=== PATIENT | female | born 1950 | race Caucasian/White ===

== ENCOUNTER 2016-10-29 12:55 | Inpatient (IN) | payer BC, OTHER ==
[~2016-10-29] VITALS: Ht 167.6 cm; Wt 74.0 kg
[2016-10-29] MEDS ORDERED: LIDOCAINE/EPINEPHRINE 1% 20 ML VIAL INFIL ONE (13:45)
[2016-10-29] MEDS ORDERED: VENL75CA PO (13:58)
[2016-10-29] MEDS ORDERED: CHOL2000 PO (13:58)
[2016-10-29] MEDS ORDERED: LEVO75TA PO (13:58)
[2016-10-29] MEDS ORDERED: OXCA300T PO ×2 (13:58)
[2016-10-29] MEDS ORDERED: ATOR-22 PO (13:58)
[2016-10-29] MEDS ORDERED: DIVA125T PO (13:58)
[2016-10-29] MEDS ORDERED: ASCO10003 PO (13:58)
[2016-10-29] MEDS ORDERED: CALC500C70 PO (13:58)
--- NOTE | 2016-10-29 14:44 | DIAGNOSTIC IMAGING REPORT ---
LEFT TIBIA/FIBULA 2 VIEWS ROUTINE CLINICAL HISTORY: trauma, hematoma of de la cruz, laceration of de la cruz trauma COMPARISON: None. DISCUSSION: Nondisplaced oblique fracture midshaft tibia. Bony alignment and apposition are unremarkable. Fibula is unremarkable. There is no evidence for soft tissue swelling. IMPRESSION: Nondisplaced fracture midshaft tibia. The above report was generated using voice recognition software. It may contain grammatical, syntax or spelling errors. Electronically signed by: Pablo Funk M.D. 10/29/2016 2:43 PM Dictated Date/Time: 10/29/2016 2:41 PM
--- NOTE | 2016-10-29 14:44 | DIAGNOSTIC IMAGING REPORT ---
RIGHT TIBIA/FIBULA 2 VIEWS ROUTINE CLINICAL HISTORY: trauma, hematoma of de la cruz Right COMPARISON STUDY: None. FINDINGS: No fracture or dislocation within the right tibia or fibula. No radiopaque foreign bodies. Mild pretibial soft tissue swelling. IMPRESSION: No fractures within the right lower leg. Electronically signed by: Kahlil Stevens M.D. 10/29/2016 2:43 PM Dictated Date/Time: 10/29/2016 2:42 PM
[2016-10-29] MEDS ORDERED: FENTANYL CITRATE INJ 50 MCG/1 ML 2 ML VIAL IV STA ×2 (14:47→16:15)
--- NOTE | 2016-10-29 15:12 | EMERGENCY ROOM VISIT NOTE ---
ED Visit Note First contact with patient: 13:56 I have seen and examined this patient with Vanesa Nance and generally agree with the treatment plan as discussed. Current/Historical Medications Scheduled Ascorbic Acid (Vitamin C), 1,000 MG PO UD Atorvastatin (Lipitor), 20 MG PO QPM Calcium/Vitamin D (Os-Rebel 500 Plus D), 1 TAB PO DAILY Cholecalciferol (Vitamin D3), 2,000 UNITS PO DAILY Divalproex Sodium (Divalproex Sodium Dr), 125 MG PO QPM Levothyroxine Sodium (Synthroid), 75 MCG PO QAM Oxcarbazepine (Trileptal), 300 MG PO QAM Oxcarbazepine (Trileptal), 450 MG PO QPM Venlafaxine Hcl (Effexor Xr), 75 MG PO QAM Allergies Coded Allergies: No Known Allergies (Unverified , 10/29/16) Vital Signs Date Time Temp Pulse Resp B/P (MAP) Pulse Ox O2 Delivery O2 Flow Rate FiO2 10/29/16 13:05 36.7 63 18 157/96 98 Room Air Laboratory Results Test 10/29/16 14:47 Departure Information Referrals No Doctor, Assigned (PCP) Patient Instructions My [facility]
[2016-10-29 15:16] LABS: BASO % 0.1 %; BASO ABS # 0.01 K/uL (0-0.2); COMPLETE YES; HEMATOCRIT 40.2 % (37-47); IG% 0.3 %; LYMPH % 19.5 %; LYMPH ABS # 1.86 K/uL (1.2-3.4); MEAN CELL VOLUME 89.7 fL (80-100); MEAN CORPUSCULAR HEMOGLOBIN 32.1 pg (25-34); MEAN CORPUSCULAR HGB CONC 35.8 g/dl (32-36); MEAN PLATELET VOLUME 8.9 fL (7.4-10.4); MONO % 7.5 %; NEUT % 71.6 %; PLATELET COUNT 244 K/uL (130-400); RED BLOOD COUNT 4.48 M/uL (4.2-5.4); WHITE BLOOD COUNT 9.54 K/uL (4.8-10.8)
[2016-10-29] MEDS ORDERED: BUPIVACAINE 0.5 % 5 MG/1 ML MPF 30ML VIAL INFIL ONE (15:30)
[2016-10-29] MEDS ORDERED: DIPHTHERIA/TETANUS/PERTUSSIS 0.5 ML SYR/VIAL IM. ONE (15:30)
[2016-10-29 15:35] LABS: BUN/CREATININE RATIO 14.2 (10-20); CALCIUM 9.9 mg/dl (8.5-10.1); CREATININE 0.84 mg/dl (0.60-1.20); POTASSIUM 3.9 mmol/L (3.5-5.1)
--- NOTE | 2016-10-29 16:07 | EMERGENCY ROOM VISIT NOTE ---
ED Visit Note First contact with patient: 13:18 CHIEF COMPLAINT: Left de la cruz laceration, bilateral de la cruz pain, s/p crush injury HISTORY OF PRESENT ILLNESS: This 65-year-old female patient presents to the emergency department approximately 3 hours after cutting the left de la cruz. The patient is from [place], and is in town for a retreat. She states she was sitting on a swing, cross leg and, when she closed her eyes and the swing tipped forward. The patient states the 2 x 4 of the top of the swing landed on her bilateral lower legs. The patient complains of pain in both lower legs and states she has a laceration on the left. She states she was unable to bear weight on her left leg after the accident. The bleeding has stopped. Denies weakness or numbness of the feet or toes. The patient rates the pain as sharp and 6/10. The patient denies any other injuries. The patient's Tetanus shot is not up to date. The patient last ate at approximately 8:15. She states she had pancakes and oatmeal at that time. REVIEW OF SYSTEMS: A 6 system review of systems was completed with positives and pertinent negatives listed in the HPI. ALLERGIES: None MEDICATIONS: Please see list PMH: Hyperlipidemia, osteopenia, hypothyroidism, anxiety, depression SOCIAL HISTORY: The patient lives in [place]. She is in town locally for a retreat. The patient denies drug, alcohol, tobacco use. PHYSICAL EXAM: Vital Signs: Reviewed Nurse's notes, vital signs stable. GENERAL : This is a 65-year-old female, appearing in pain, in no acute distress, well- developed, well-nourished. SKIN: There is a 1.5cm x 1.5cm long, V-shaped laceration on the anterior aspect of the left lower extremity. The edges gape apart with traction. There is no foreign material in the wound and it looks clean. There is minimal bleeding. Visible tibia bone with laceration through the fascia. No significant blood vessels are seen in the base of the wound. Decreased strength of the left lower extremity due to pain. Pain in the midshaft of the left tibia with active and passive range of motion of the left lower extremity. Normal strength and movement of the right lower extremity. Small hematoma noted on anterior, lateral aspect of right lower extremity. Capillary refill less than 2 seconds. Normal sensation to light and sharp touch. RADIOLOGY: X-Ray Left Tibia/Fibula: DISCUSSION: Nondisplaced oblique fracture midshaft tibia. Bony alignment and apposition are unremarkable. Fibula is unremarkable. There is no evidence for soft tissue swelling. IMPRESSION: Nondisplaced fracture midshaft tibia. X-Ray Right Tibia/Fibula: FINDINGS: No fracture or dislocation within the right tibia or fibula. No radiopaque foreign bodies. Mild pretibial soft tissue swelling. IMPRESSION: No fractures within the right lower leg. CXR: FINDINGS: The bones soft tissues and hemidiaphragms are normal. The cardiomediastinal silhouette is normal. The lungs are clear. The pulmonary vasculature is normal. IMPRESSION: Negative chest. EMERGENCY DEPARTMENT COURSE: I examined the patient. X-ray of bilateral lower extremities were ordered. X-ray of left lower extremity did show nondisplaced oblique fracture through the mid shaft of the left tibia. This fracture is in the same location as the puncture wound on the skin of the tibia. I consulted with Danielito Sky PA-C from [facility] regarding the patient's symptoms, x-ray, physical examination. He evaluated the patient and requested anesthesia and further, deeper examination. Preoperative lab work, EKG, chest x-ray were ordered. The patient was given 50 g fentanyl IV. Verbal consent was obtained to perform the procedure. Using sterile technique the wound was cleansed with Betadine. The area was sterilely draped. 8 ml of 1% lidocaine with epinephrine with 0.5% bupivacaine was used to anesthetize the laceration on the anterior left lower extremity. Once the patient was anesthetized, the wound was copiously irrigated under pressure with sterile saline. The wound was explored and was as described above. The patient tolerated the procedure well. The patient was given Tdap vaccination in the emergency department. Danielito reevaluated the patient under local anesthesia. He discussed with the patient that she will need to go to the operating room to have the wound cleaned out due to open fracture. The patient was admitted under [facility] service. DIFFERENTIAL DIAGNOSIS: Tibia fracture, fibular fracture, hematoma, open fracture, superficial laceration, soft tissue injury, and others. DIAGNOSIS: Open, nondisplaced oblique fracture of the midshaft of the left tibia. Current/Historical Medications Scheduled Ascorbic Acid (Vitamin C), 1,000 MG PO UD Atorvastatin (Lipitor), 20 MG PO QPM Calcium/Vitamin D (Os-Rebel 500 Plus D), 1 TAB PO DAILY Cholecalciferol (Vitamin D3), 2,000 UNITS PO DAILY Divalproex Sodium (Divalproex Sodium Dr), 125 MG PO QPM Levothyroxine Sodium (Synthroid), 75 MCG PO QAM Oxcarbazepine (Trileptal), 300 MG PO QAM Oxcarbazepine (Trileptal), 450 MG PO QPM Venlafaxine Hcl (Effexor Xr), 75 MG PO QAM Allergies Coded Allergies: No Known Allergies (Unverified , 10/29/16) Vital Signs Date Time Temp Pulse Resp B/P (MAP) Pulse Ox O2 Delivery O2 Flow Rate FiO2 10/29/16 16:44 60 18 140/91 96 Room Air 10/29/16 15:58 55 18 114/70 95 Room Air 10/29/16 15:16 66 18 193/104 97 10/29/16 13:05 36.7 63 18 157/96 98 Room Air Laboratory Results 10/29/16 15:06 Red Blood Count 4.48, Mean Corpuscular Volume 89.7, Mean Corpuscular Hemoglobin 32.1, Mean Corpuscular Hemoglobin Concent 35.8, Mean Platelet Volume 8.9, Neutrophils (%) (Auto) 71.6, Lymphocytes (%) (Auto) 19.5, Monocytes (%) (Auto) 7.5, Eosinophils (%) (Auto) 1.0, Basophils (%) (Auto) 0.1, Neutrophils # (Auto) 6.82, Lymphocytes # (Auto) 1.86, Monocytes # (Auto) 0.72, Eosinophils # (Auto) 0.10, Basophils # (Auto) 0.01 10/29/16 15:06 Test 10/29/16 15:06 White Blood Count 9.54 K/uL (4.8-10.8) Red Blood Count 4.48 M/uL (4.2-5.4) Hemoglobin 14.4 g/dL (12.0-16.0) Hematocrit 40.2 % (37-47) Mean Corpuscular Volume 89.7 fL (80-100) Mean Corpuscular Hemoglobin 32.1 pg (25-34) Mean Corpuscular Hemoglobin Concent 35.8 g/dl (32-36) Platelet Count 244 K/uL (130-400) Mean Platelet Volume 8.9 fL (7.4-10.4) Neutrophils (%) (Auto) 71.6 % Lymphocytes (%) (Auto) 19.5 % Monocytes (%) (Auto) 7.5 % Eosinophils (%) (Auto) 1.0 % Basophils (%) (Auto) 0.1 % Neutrophils # (Auto) 6.82 K/uL (1.4-6.5) Lymphocytes # (Auto) 1.86 K/uL (1.2-3.4) Monocytes # (Auto) 0.72 K/uL (0.11-0.59) Eosinophils # (Auto) 0.10 K/uL (0-0.5) Basophils # (Auto) 0.01 K/uL (0-0.2) RDW Standard Deviation 39.6 fL (36.4-46.3) RDW Coefficient of Variation 12.1 % (11.5-14.5) Immature Granulocyte % (Auto) 0.3 % Immature Granulocyte # (Auto) 0.03 K/uL (0.00-0.02) Anion Gap 8.0 mmol/L (3-11) Est Creatinine Clear Calc Drug Dose 68.7 ml/min Estimated GFR () 84.5 Estimated GFR (Non- 72.9 BUN/Creatinine Ratio 14.2 (10-20) Calcium Level 9.9 mg/dl (8.5-10.1) Medications Administered Medications (Trade) Dose Ordered Sig/Jose Maria Route Start Time Stop Time Status Last Admin Dose Admin Fentanyl Citrate (Fentanyl Inj) 50 mcg NOW STAT IV 10/29/16 14:47 10/29/16 14:51 DC 10/29/16 15:14 50 MCG Diphtheria/ Pertussis/Tetanus Vacc (Adacel Inj) 0.5 ml ONCE ONCE IM. 10/29/16 15:30 10/29/16 15:31 DC 10/29/16 15:22 0.5 ML Fentanyl Citrate (Fentanyl Inj) 25 mcg NOW STAT IV 10/29/16 16:15 10/29/16 16:17 DC 10/29/16 16:43 25 MCG Departure Information Impression Primary Impression: Oblique fracture of shaft of tibia Dispostion Admitted as an inpatient Referrals No Doctor, Assigned (PCP) [facility] Problem Qualifiers Primary Impression: Oblique fracture of shaft of tibia Encounter type: initial encounter Fracture type: open Open fracture type: open type I or II Fracture alignment: nondisplaced Laterality: left Qualified Codes: S82.235B - Nondisplaced oblique fracture of shaft of left tibia, initial encounter for open fracture type I or II
[2016-10-29] MEDS ORDERED: MoRPHine SULFATE 2 MG/ML CARP IV PRN (16:30)
[2016-10-29] MEDS ORDERED: MIDAZOLAM HCL 1 MG/ML 2ML VIAL ONE (16:37)
[2016-10-29] MEDS ORDERED: ONDANSETRON INJ 2 MG/ML 2 ML VIAL ONE (16:37)
[2016-10-29] MEDS ORDERED: LIDOCAINE HCL 2% 2 ML VIAL (20MG/ML) ONE (16:37)
[2016-10-29] MEDS ORDERED: FENTANYL CITRATE INJ 50 MCG/1 ML 2 ML VIAL ONE (16:37)
[2016-10-29] MEDS ORDERED: ROCURONIUM BROMIDE 10 MG/ML 5 ML VIAL ONE (16:37)
[2016-10-29] MEDS ORDERED: PROPOFOL IV EMULSION 10 MG/ML 20 ML VIAL IV ONE (16:37)
[2016-10-29] MEDS ORDERED: DEXAMETHASONE SOD INJ 4 MG/ML VIAL ONE (16:37)
--- NOTE | 2016-10-29 16:38 | DIAGNOSTIC IMAGING REPORT ---
CHEST 2 VIEWS ROUTINE CLINICAL HISTORY: open tibial fracture, pre-op preoperative evaluation COMPARISON STUDY: No previous studies for comparison. FINDINGS: The bones soft tissues and hemidiaphragms are normal. The cardiomediastinal silhouette is normal. The lungs are clear. The pulmonary vasculature is normal. IMPRESSION: Negative chest. The above report was generated using voice recognition software. It may contain grammatical, syntax or spelling errors. Electronically signed by: Pablo Funk M.D. 10/29/2016 4:37 PM Dictated Date/Time: 10/29/2016 4:37 PM
--- NOTE | 2016-10-29 16:43 | History and Physical ---
History & Physical Date & Time of Service: Oct 29, 2016 at 16:23 Chief Complaint: Leg Pain/Lac Primary Care Physician: No Doctor, Assigned History of Present Illness Source: patient 65-year-old white female who was seen today in the emergency room. Patient states that she was on a porch swing earlier in the day. She was swinging on the swing, the retaining board gave way and came down. The 4 x 4 plank hit both of her tibias simultaneously. That point in time she had pain in both tibias and had an noted tear and the skin on the left tibia. When she was brought to the emergency room, she was seen by the staff, x-rays were taken, and it was found that she had a nondisplaced midshaft tibia fracture of the left tibia. She also had a noted abrasion/skin tear that appeared to go deeper in towards the bone itself. I came down and examine the patient and had the emergency room physician construction management assistant clean the wound up and provide some anesthesia with lidocaine. After achieving appropriate anesthesia, she states that when she was exploring the wound, that it is good down to the fracture site. I then explored the wound myself and after brief exploration, did find that the wound did puncture down into the area of the fracture site. The patient ate at 8:30 this morning and would need 8 hours of nothing by mouth status. He was discussed with her that she would need at the very least a irrigation debridement of the wound and possibly casting versus IM nailing of the tibia fracture. Final treatment to be decided by Dr. Castañeda. Past Medical/Surgical History Hypothyroidism, Pneumonia x 3 in the past. Question of Asthma. She states that her Primary Care Provider felt it may have been secondary to pneumonia. Hypercholesterolemia, Seizure Disorder (simple seizures - arm numbness) H/O Cholecystectomy, Ross teeth removal. Family History F (D) Lung Ca M (D) Complications from surgery 2 Brothers with h/o AR Social History Smoking Status: Never Smoker Alcohol Use: none Marital Status: Allergies Coded Allergies: No Known Allergies (Unverified , 10/29/16) Home Medications Scheduled Ascorbic Acid (Vitamin C), 1,000 MG PO UD Atorvastatin (Lipitor), 20 MG PO QPM Calcium/Vitamin D (Os-Rebel 500 Plus D), 1 TAB PO DAILY Cholecalciferol (Vitamin D3), 2,000 UNITS PO DAILY Divalproex Sodium (Divalproex Sodium Dr), 125 MG PO QPM Levothyroxine Sodium (Synthroid), 75 MCG PO QAM Oxcarbazepine (Trileptal), 300 MG PO QAM Oxcarbazepine (Trileptal), 450 MG PO QPM Venlafaxine Hcl (Effexor Xr), 75 MG PO QAM Review of Systems Denies history of any recent fevers, chills, night sweats, unexplained weight loss, weight gain. No flu or cold-like symptoms. No increased cough or sputum production. No history of any recent asthma attacks and states that she has not had to use her inhaler for years. No hemoptysis no shortness of breath at rest or on exertion. Denies chest pain, chest pressure, irregular heartbeat. Denies unusual abdominal pain, nausea, vomiting, diarrhea. Denies history of hematemesis, hematochezia, melena. Denies history of recurrent urinary tract infections, hematuria, pyuria, dysuria, renal calculi. Denies history of unusual menstrual cycle, unusual vaginal bleeding. Positive history of simple seizures on medication. Denies CVA, TIA, migraine headache. Physical Exam Vital Signs Date Time Temp Pulse Resp B/P (MAP) Pulse Ox O2 Delivery O2 Flow Rate FiO2 10/29/16 15:58 55 18 114/70 95 Room Air 10/29/16 15:16 66 18 193/104 97 10/29/16 13:05 36.7 63 18 157/96 98 Room Air On exam, patient is lying in bed and appears to be comfortable. She is alert and oriented 3, and is pleasant and cooperative. No acute distress. Skin is warm and dry, turgor is good. HEENT: Head is normocephalic and atraumatic. Patient did bump her head as she fell but no obvious wounds. There is no scleral icterus or injection. Pupils appear equal. Nasal airways patent and/ or mucosa is pink and moist. Neck: Supple without adenopathy, negative for bruit. Heart: Regular rate and rhythm . Lungs: Clear to auscultation. Abdomen : Soft, round, nontender. Bowel sounds present and active 4. Vaginal/rectal: Not performed. Extremities: On examination of her left lower extremity, she has an open wound that is approximately midshaft tibia. It is approximately 1 cm in width and length and appears to go down into the deeper muscle close to the bone upon early inspection. Later inspection would improve the wound does go down to the bone at the fracture area. She has no overt swelling. Calves are soft and nontender. Left ankle is nontender and has good range of motion. Sensation is intact. She denies left knee pain. She denies left hip pain. Right lower extremity with some pain over the mid shaft of the tibia with a small area of ecchymosis noted. No open wounds. Range of motion is within normal limits, and sensation is intact. Upper extremities are essentially benign at this time and range of motion is within normal limits. Distal pulses are equal bilaterally of the upper and lower extremities. Neck is nontender to palpation and has good range of motion. She denies thoracic or low back pain. No gross motor or sensory deficits seen at this time. Diagnostics Laboratory Results Results Past 24 Hours Test 10/29/16 15:06 Range/Units White Blood Count 9.54 4.8-10.8 K/uL Red Blood Count 4.48 4.2-5.4 M/uL Hemoglobin 14.4 12.0-16.0 g/dL Hematocrit 40.2 37-47 % Mean Corpuscular Volume 89.7 80-100 fL Mean Corpuscular Hemoglobin 32.1 25-34 pg Mean Corpuscular Hemoglobin Concent 35.8 32-36 g/dl Platelet Count 244 130-400 K/uL Mean Platelet Volume 8.9 7.4-10.4 fL Neutrophils (%) (Auto) 71.6 % Lymphocytes (%) (Auto) 19.5 % Monocytes (%) (Auto) 7.5 % Eosinophils (%) (Auto) 1.0 % Basophils (%) (Auto) 0.1 % Neutrophils # (Auto) 6.82 1.4-6.5 K/uL Lymphocytes # (Auto) 1.86 1.2-3.4 K/uL Monocytes # (Auto) 0.72 0.11-0.59 K/uL Eosinophils # (Auto) 0.10 0-0.5 K/uL Basophils # (Auto) 0.01 0-0.2 K/uL RDW Standard Deviation 39.6 36.4-46.3 fL RDW Coefficient of Variation 12.1 11.5-14.5 % Immature Granulocyte % (Auto) 0.3 % Immature Granulocyte # (Auto) 0.03 0.00-0.02 K/uL Sodium Level 133 136-145 mmol/L Potassium Level 3.9 3.5-5.1 mmol/L Chloride Level 99 98-107 mmol/L Carbon Dioxide Level 26 21-32 mmol/L Anion Gap 8.0 3-11 mmol/L Blood Urea Nitrogen 12 7-18 mg/dl Creatinine 0.84 0.60-1.20 mg/dl Est Creatinine Clear Calc Drug Dose 68.7 ml/min Estimated GFR () 84.5 Estimated GFR (Non- 72.9 BUN/Creatinine Ratio 14.2 10-20 Random Glucose 90 70-99 mg/dl Calcium Level 9.9 8.5-10.1 mg/dl Impression Assessment and Plan Assessment: Left open midshaft tibia fracture Plan: Patient will be taken to the operating room by Dr. Castañeda for irrigation debridement of tibia wound with possible casting versus intramedullary tibial nailing of the tibia fracture. VTE Prophylaxis VTE Risk Assessment Done? Y/N: Yes Risk Level: Moderate
[2016-10-29] MEDS ORDERED: BACITRACIN 50000 UNIT VIAL ONE (16:56)
[2016-10-29] MEDS ORDERED: CEFAZOLIN SOD 1000MG/55 ML D5W IV ONE (17:04)
[2016-10-29] MEDS ORDERED: SUCCINYLCHOLINE CHLORIDE 20 MG/ML 10 ML VIAL IV ONE (17:43)
[2016-10-29] MEDS ORDERED: EpHEDrine SULFATE INJ 50 MG/ML AMP IV PRN (18:00)
[2016-10-29] MEDS ORDERED: HYDROmorphone INJ 1 MG/ML SYR IV PRN (18:00)
[2016-10-29] MEDS ORDERED: FENTANYL CITRATE INJ 50 MCG/1 ML 2 ML VIAL IV PRN (18:00)
[2016-10-29] MEDS ORDERED: PROMETHAZINE HCL INJ 12.5 MG in SODIUM CHLORIDE 0.9% 50ML 50 ML IV PRN (18:00)
[2016-10-29] MEDS ORDERED: ONDANSETRON INJ 2 MG/ML 2 ML VIAL IV PRN (18:00)
[2016-10-29] MEDS ORDERED: ATROPINE SULFATE 0.1 MG/ML 5ML SYR IV PRN (18:00)
[2016-10-29] MEDS ORDERED: EpHEDrine SULFATE 50MG/5ML SYR ONE (18:16)
[2016-10-29] MEDS ORDERED: EpHEDrine SULFATE INJ 50 MG/ML AMP ONE (18:28)
[2016-10-29] MEDS ORDERED: BISACODYL 10 MG SUPP PR PRN (18:30)
[2016-10-29] MEDS ORDERED: ALUMINUM/MAGNESIUM/SIMETH (MAALOX MAX) 30 ML UDC PO PRN (18:30)
[2016-10-29] MEDS ORDERED: MAGNESIUM HYDROXIDE SUSP 30 ML UDC PO PRN (18:30)
[2016-10-29] MEDS ORDERED: MoRPHine SULFATE 4 MG/ML 1 ML CARP\\VIAL IV PRN (18:45)
[2016-10-29] MEDS ORDERED: MoRPHine SULFATE 10 MG/ML CARP/VIAL IV PRN (18:45)
[2016-10-29] MEDS ORDERED: KETOROLAC TROMETHAMINE 30 MG/ML VIAL ONE (19:33)
--- NOTE | 2016-10-29 19:36 | Anesthesiology Progress Note ---
Anesthesia Post Op Note Date & Time Oct 29, 2016 at 19:36 Vital Signs Pain Intensity: 6.0 Vital Signs Past 12 Hours Date Time Temp Pulse Resp B/P (MAP) Pulse Ox O2 Delivery O2 Flow Rate FiO2 10/29/16 19:20 102 20 146/78 97 Nasal Cannula 2 10/29/16 19:10 101 24 150/82 98 Oxymask 10 10/29/16 19:00 102 21 142/84 94 Oxymask 10 10/29/16 18:52 36.2 101 16 166/92 98 Oxymask 10 10/29/16 16:44 60 18 140/91 96 Room Air 10/29/16 15:58 55 18 114/70 95 Room Air 10/29/16 15:16 66 18 193/104 97 10/29/16 13:05 36.7 63 18 157/96 98 Room Air Notes Mental Status: alert / awake / arousable, participated in evaluation Pt Amnestic to Procedure: Yes Nausea / Vomiting: adequately controlled Pain: adequately controlled Airway Patency, RR, SpO2: stable & adequate BP & HR: stable & adequate Hydration State: stable & adequate Anesthetic Complications: no major complications apparent
[2016-10-29 19:55] VITALS: BP 136/82; PULSE 98; TEMP 36.6; O2SAT 2; O2SAT 95
[2016-10-29 20:10] VITALS: BP 128/74; PULSE 98; TEMP 36.5; O2SAT 98
[2016-10-29] MEDS: D5W AND 1/2NSS + 20MEQ KCL 1,000 ML IV SCH (20:43)
[2016-10-29 20:56] VITALS: BP 118/78; PULSE 99; TEMP 36.6; O2SAT 97
--- NOTE | 2016-10-29 20:58 | DIAGNOSTIC IMAGING REPORT ---
TIBIA/FIBULA 2 VIEWS ROUTINE HISTORY: 65 years-old Female mid shaft open fracture of the left tibia. COMPARISON: Left tibia and fibula radiographs of same day TECHNIQUE: 3 spot fluoroscopic images of the left tibia and fibula were obtained utilizing 19.2 minutes of fluoroscopy time. FINDINGS/IMPRESSION: Complete fracture of the mid diaphyseal left tibia is redemonstrated without displacement or angulation. The third image demonstrates a metallic device just cephalad to the fracture site. Please see operative report for further details. The above report was generated using voice recognition software. It may contain grammatical, syntax or spelling errors. Electronically signed by: Eliud Rosales M.D. 10/29/2016 8:57 PM Dictated Date/Time: 10/29/2016 8:55 PM
[2016-10-29] MEDS: ATORVASTATIN 20 MG TAB PO SCH (21:43)
[2016-10-29] MEDS: DIVALPROEX DELAY REL TAB 125 MG TABEC PO SCH (21:43)
[2016-10-29] MEDS: OXCARBAZEPINE 150 MG TAB PO SCH (21:43)
[2016-10-29] MEDS: ACETAMINOPHEN 500 MG TAB PO SCH (21:44)
[2016-10-29 21:55] VITALS: BP 127/78; PULSE 98; TEMP 36.7; O2SAT 92
[2016-10-29 22:09] VITALS: BP 118/78; PULSE 99; TEMP 36.6; O2SAT 99; Ht 167.6 cm; Wt 74.0 kg
[2016-10-29 22:55] VITALS: BP 135/80; PULSE 97; TEMP 36.5; O2SAT 90
[2016-10-29] MEDS: OXYCODONE HCL IR 5 MG TAB (IMMEDIATE RELEASE) PO PRN (23:21)
[2016-10-30] VITALS (9 sets, daily range): BP systolic 110–176; BP diastolic 69–91; PULSE 66–89; TEMP 36.6–36.8; O2SAT 92–96
[2016-10-30] MEDS: CEFAZOLIN IV 1,000 MG in DEXTROSE 5% 50ML 50 ML IV SCH ×2 (02:07→10:12)
[2016-10-30] MEDS: KETOROLAC TROMETHAMINE 15 MG/ML VIAL IV. SCH ×3 (02:08→13:55)
[2016-10-30] MEDS: D5W AND 1/2NSS + 20MEQ KCL 1,000 ML IV SCH ×2 (04:30→15:00)
[2016-10-30] MEDS: OXYCODONE HCL IR 5 MG TAB (IMMEDIATE RELEASE) PO PRN ×3 (04:30→13:17)
[2016-10-30 04:56] LABS: URINE APPEARANCE CLEAR (CLEAR); URINE BILIRUBIN NEG (NEG); URINE COLOR YELLOW; URINE EPITHELIAL CELL AUTO 0-5 /lpf (0-5); URINE NITRITE NEG (NEG); URINE PH 5.5 (4.5-7.5); URINE SPECIFIC GRAVITY 1.019 (1.000-1.030); UROBILINOGEN NEG (NEG)
[2016-10-30 04:58] LABS: MANUAL MICROSCOPIC REQUIRED? NO; REVIEW REQ? NO
[2016-10-30] MEDS: ACETAMINOPHEN 500 MG TAB PO SCH ×3 (05:44→22:14)
[2016-10-30] MEDS: LEVOTHYROXINE 75 MCG TAB PO SCH (05:44)
[2016-10-30] MEDS ORDERED: CEFAZOLIN IV 1,000 MG in DEXTROSE 5% 50ML 50 ML IV SCH (06:00)
--- NOTE | 2016-10-30 07:44 | OPERATIVE REPORT ---
DATE OF OPERATION: 10/29/2016 PREOPERATIVE DIAGNOSIS: Left open grade 1 tibia fracture. POSTOPERATIVE DIAGNOSIS: Same. PROCEDURE: 1. Left I&D, open mid-shaft tibia fracture. 2. Left closed treatment, tibia fracture. SURGEON: Dr. Castañeda. CLINICAL RADIOLOGIST: NARCISA Lawson, who was necessary for prepping, draping, and cast application. INDICATIONS: This is a 65-year-old female, who sustained the above-mentioned injury. She had a direct blow to the anterior leg and she presents with a concern for a possible open tibia fracture with an outside-in injury as opposed to the bone coming out through the skin. I saw her in the preoperative holding area, we discussed risks, benefits, reasonable outcomes, options and alternatives of treatment. I discussed with her I could not ascertain for certain whether or not the fracture is an open fracture and I cannot ascertain whether or not the bone is stable. We discussed options of cast treatment versus IM nail. I discussed with her that I will do an intraoperative fluoroscopy in the operating room and if the bone was unstable, would proceed with intramedullary nail fixation. I discussed with her if the fracture was incomplete, as it does appear on lateral radiograph, that the best option may be closed treatment with a cast application. I discussed that it could possibly be the tibia fracture may not heal, despite cast application. She is understanding of these issues. She is a nonsmoker. The risks and benefits have been discussed including, but not limited to, risk of infection, nerve injury, stiffness, loss of motion, failure to improve, etc. The patient is agreeable and wishes to proceed. DESCRIPTION OF PROCEDURE: The patient was prepped and draped in the standard fashion. Under live C-arm fluoroscopy, I performed varus and valgus stress to the tibia. There was no evidence of instability. Preoperatively, she was able to raise her leg up off the bed and I did not detect any gross instability of the tibia. Lateral radiographs confirmed that this was not a complete fracture. I elected to proceed with closed treatment of the fracture with application of a plaster splint. The open wound over the anterior aspect of the tibia was extended slightly proximally and distally. Dissection was carried down through the skin and subcutaneous tissue and there was confirmation of open bony injury and injury into the periosteum in the area. The fracture site was slightly distal to this and may have communicated with the open wound. I performed irrigation and debridement of the area, debriding any devitalized tissue. Debridement of skin and subcutaneous tissue and bone was performed. The area was copiously irrigated with 1 liter of normal saline. The laceration was closed with 3-0 nylon in a mattress fashion. This did result in complete closure of the open wound. The open wound was approximately 1 cm x 1 cm. The patient was then placed in a dry sterile dressing and I placed a Strickland type of dressing with a U around the ankle to mobilize both the ankle and the knee. This was placed with two 5-inch plasters, 5 x 30 slabs. The patient was sent to the PACU in a stable condition. I injected Marcaine in the local area at the conclusion of the procedure for pain relief. I discussed the results of the procedure in detail with the patient's family, given the patient is from [place] and they will follow up with an orthopod within a few days in [place]. I attest to the content of the Intraoperative Record and any orders documented therein. Any exception s are noted below.
--- NOTE | 2016-10-30 07:50 | Anesthesiology Progress Note ---
Anesthesia Post Op Note Date & Time Oct 30, 2016 at 07:50 Vital Signs Pain Intensity: 2.0 Vital Signs Past 12 Hours Date Time Temp Pulse Resp B/P (MAP) Pulse Ox O2 Delivery O2 Flow Rate FiO2 10/30/16 07:46 36.8 84 16 120/70 (87) 92 Room Air 10/30/16 03:36 36.7 89 15 119/69 (86) 94 Room Air 10/29/16 23:23 Room Air 10/29/16 22:55 36.5 97 15 135/80 (98) 90 Room Air 10/29/16 22:09 36.6 99 18 118/78 99 Nasal Cannula 2.0 10/29/16 21:55 36.7 98 18 127/78 (94) 92 Room Air 10/29/16 20:56 36.6 99 18 118/78 (91) 97 Nasal Cannula 1.5 10/29/16 20:10 36.5 98 16 128/74 (92) 98 Nasal Cannula 2.0 10/29/16 19:55 2 Nasal Cannula 10/29/16 19:55 36.6 98 16 136/82 (100) Nasal Cannula 2.0 10/29/16 19:55 95 Nasal Cannula 2.0 Notes Mental Status: alert / awake / arousable Pt Amnestic to Procedure: Yes Nausea / Vomiting: adequately controlled Pain: adequately controlled Airway Patency, RR, SpO2: stable & adequate BP & HR: stable & adequate Hydration State: stable & adequate Anesthetic Complications: no major complications apparent
--- NOTE | 2016-10-30 07:54 | Clinical Documentation Query ---
CLINICAL DOCUMENTATION QUERY Dr. VEGA, In your clinical opinion is this patient being managed for: (x ) Open type I or II, nondisplaced oblique fracture of shaft of left tibia ( ) Other explanation of clinical findings (Please Explain) ( ) Unable to determine (Please Define) ( ) Need to Discuss ( ) Not Agree The medical record reflects the following clinical findings, treatment, and risk factors. Clinical Indicators:Documentation in the clinical record indicates pt with "1.5cm x 1.5cm long, V-shaped laceration on the anterior aspect of the left lower extremity. The edges gape apart with traction. There is no foreign material in the wound and it looks clean. There is minimal bleeding. Visible tibia bone with laceration through the fascia." Treatment: ortho plan for I/D with possible casting vs IM nailing Risk Factors: injury involving swing Specificity of open fracture must be documented using the Gustilo Open Fracture Classification system in order for the coders to code this diagnosis: Type I: *Wound less than 1 cm with minimal soft tissue injury *Wound bed is clean *Fracture is usually a simple transverse, short oblique fracture, with minimal comminution Type II: *Wound is greater than 1 cm with moderate soft tissue injury *Fracture is usually a simple transverse, short oblique fracture, with minimal comminution Type III: *Fractures that involve extensive damage to the soft tissues, including muscle, skin and neurovascular structures *Often accompanied by a high-velocity injury or a severe crushing component *Special patterns classified as Type III: *Open segmental fracture, irrespective of the size of the wound *Gunshot wounds -high velocity and short-range shotgun injuries *Open fracture with neurovascular injury *Farm injuries, with soil contamination, irrespective of the size of the wound *Traumatic amputations *Open fractures over 8 hours old *Mass casualties; eg, war and tornado victims *Subtype IIIA *Adequate soft tissue coverage despite soft tissue laceration or flaps or high energy trauma irrespective of the size of the wound *Includes segmental or severely conminuted fractures *Subtype IIIB *Extensive soft tissue lost with periosteal stripping and bony exposure *Usually associated with massive contamination *Subtype IIIC *Fracture in which there is a major arterial injury requiring repair for limb salvage Please clarify and document your clinical opinion in the progress notes and discharge summary. Terms such as "probable", "suspected", "likely", "questionable", "possible", or "still to be ruled out" are acceptable. IF IN AGREEMENT, YOU MUST DOCUMENT ABOVE DIAGNOSTIC STATEMENT IN DAILY PROGRESS NOTES AND DISCHARGE SUMMARY. This document is not part of the patient's record. Thank You, Radha Strickland RN [phone]
[2016-10-30] MEDS ORDERED: ASPIRIN 325 MG ECTAB PO SCH (09:00)
[2016-10-30] MEDS: VENLAFAXINE HCL XR 75 MG CAPXR PO SCH (09:04)
[2016-10-30] MEDS: PANTOprazole SOD 40 MG TAB PO SCH (09:04)
[2016-10-30] MEDS: OXCARBAZEPINE 150 MG TAB PO SCH ×2 (09:05→20:50)
[2016-10-30] MEDS: CHOLECALCIFEROL 1000 INTER.UNIT TAB PO SCH (09:05)
[2016-10-30] MEDS ORDERED: RXC5 PO (11:36)
[2016-10-30] MEDS ORDERED: ACET-24 PO (11:36)
[2016-10-30] MEDS ORDERED: ASPEC325 PO (11:36)
--- NOTE | 2016-10-30 11:43 | Discharge Instructions ---
Discharge Instructions Date of Service Oct 30, 2016. Admission Reason for Admission: Open Left Tibial Fracture Discharge Discharge Diagnosis / Problem: Open Left Midshaft Tibia Fx Discharge Goals Goal(s): Decrease discomfort, Improve function Activity Recommendations Activity Limitations: per Instructions/Follow-up section Weightbearing Status: Left non-weightbearing . Instructions / Follow-Up Instructions / Follow-Up Keep splint/dressing clean and dry. No showers/tub baths at this time. You must be non weight bearing on the left lower extremity Use a walker or crutches for ambulation. You will be taking Aspirin twice daily. This is to help keep you from getting a blood clot. Your Orthopedic Physician at home may or may not prescribe something stronger. Keep the leg elevated on 1 or 2 pillows when at rest. Increase your activity as the leg allows. Watch for increased pain that is not covered by your pain medications. Watch for calf pain, pain in the back of the thigh, or moderate foot swelling. Call your doctor if you have a temp of 101.5 or greater. (If you are still in the [place], [place] area, you can call [phone]) FOLLOW UP AT DR VEGA'S OFFICE FRIDAY FOR A DRESSING CHANGE/WOUND CHECK. CALL [phone] YOU WILL NEED TO FOLLOW UP WITH AN ORTHOPEDIST ONCE YOU ARRIVE AT HOME. YOU SHOULD SEE SOMEONE SOON POSSIBLE. FOLLOW UP WITH YOUR PCP FOR BLOOD PRESSURE CHECK IN 1 WEEK. Current Hospital Diet Patient's current hospital diet: Regular Diet Discharge Diet Recommended Diet: Regular Diet Procedures Procedures Performed: Left Tibia Irrigation and Debridement, Closed Treatment Midshaft Tibia Fracture Pending Studies Studies pending at discharge: no Medical Emergencies . Who to Call and When: Medical Emergencies: If at any time you feel your situation is an emergency, please call 911 immediately. . Non-Emergent Contact Non-Emergency issues call your: Surgeon Call Non-Emergent contact if: temperature is above 101.5, your pain is not controlled, your pain is worsening, wound has increased drainage, wound has increased redness . "Provider Documentation" section prepared by Danielito Sky. . VTE Core Measure Inpt VTE Proph given/why not?: Other Anticoagulation, T.E.D. Stockings, SCD's [place] Drug Monitoring Program Search Results: patient reviewed within database, no issues identified
--- NOTE | 2016-10-30 13:04 | Progress Note ---
Progress Note Date of Service Oct 30, 2016. Progress Note Hospitalist service consultation for pre-operative clearance. Patient is currently post-operative. Did discuss with orthopedics that patient is likely for D/C later today. She has a PMHx of hypothyroidism, HLD, simple seizure disorder. She is hemodynamically stable and no alarming findings needed for medical management. She is optimal for D/C per primary service.
[2016-10-30] MEDS ORDERED: ZOLPIDEM TARTRATE 5 MG TAB PO PRN (16:45)
[2016-10-30] MEDS ORDERED: ASPEC81 PO (16:50)
[2016-10-30] MEDS: DIVALPROEX DELAY REL TAB 125 MG TABEC PO SCH (20:49)
[2016-10-30] MEDS: ATORVASTATIN 20 MG TAB PO SCH (20:49)
[2016-10-30] MEDS: ASPIRIN 81 MG ECTAB PO SCH (20:49)
--- NOTE | 2016-10-30 22:32 | Orthopedic Progress Note ---
Orthopedic Progress Note Date of Service Oct 30, 2016. Subjective Post OP Day: 1 Denies: chest pain, SOB, nausea / vomiting, light headedness, calf pain Additional Notes: Pt sleeping upon arrival to room. Easily awoken. States she had a busy day with PT etc. Feeling tired currently. Pain controlled at present. Difficulty sleeping. Had increased pain in the night. Multiple questions about plans for going home etc. All questions answered to patient satisfaction. Objective calves soft nontender, N/V intact, splint C/D/I, capillary refill less than 2 sec., A&O x3, toes mobile Date Time Temp Pulse Resp B/P (MAP) Pulse Ox O2 Delivery O2 Flow Rate FiO2 10/30/16 19:31 36.7 66 18 138/86 (103) 96 Room Air 10/30/16 16:20 147/82 (103) 10/30/16 16:20 Room Air 10/30/16 15:07 36.6 72 18 176/89 (118) 94 Room Air 10/30/16 13:06 36.8 72 16 110/74 (86) 94 Room Air 10/30/16 08:03 92 Room Air 10/30/16 07:50 Room Air 10/30/16 07:46 36.8 84 16 120/70 (87) 92 Room Air 10/30/16 03:36 36.7 89 15 119/69 (86) 94 Room Air 10/29/16 23:23 Room Air 10/29/16 22:55 36.5 97 15 135/80 (98) 90 Room Air Assessment & Plan Assessment: POD 1 s/p I&D LLE Open Tibia Fx wound with splinting. Plan: Plan for dc in AM Pt to follow up with her Orthopedist in [place] (Dr Harry present during exam) Inhouse Planning Pain Management: Morphine, PO Tylenol, Oxy IR DVT Prophylaxis: SCDs, ASA Discharge Planning Discharge Planning: home Pain Management: PO Tylenol, Oxy IR DVT Prophylaxis: ASA
[2016-10-31] MEDS: D5W AND 1/2NSS + 20MEQ KCL 1,000 ML IV SCH ×2 (00:54→11:00)
[2016-10-31] MEDS: ONDANSETRON INJ 2 MG/ML 2 ML VIAL IV PRN ×2 (02:50→09:04)
[2016-10-31] MEDS: LEVOTHYROXINE 75 MCG TAB PO SCH (05:56)
[2016-10-31] MEDS: ACETAMINOPHEN 500 MG TAB PO SCH (05:57)
[2016-10-31] MEDS ORDERED: ONDA8TAB6 PO (06:50)
--- NOTE | 2016-10-31 07:00 | Orthopedic Progress Note ---
Orthopedic Progress Note Date of Service Oct 31, 2016. Subjective Post OP Day: 2 Reports: feeling well, Denies: chest pain, SOB, light headedness, calf pain Additional Notes: some nausea last night, otherwise no complaints Objective calves soft nontender, N/V intact, splint C/D/I, capillary refill less than 2 sec., A&O x3, toes mobile Date Time Temp Pulse Resp B/P (MAP) Pulse Ox O2 Delivery O2 Flow Rate FiO2 10/30/16 23:15 Room Air 10/30/16 23:06 36.7 72 14 160/91 (114) 96 Room Air 10/30/16 22:15 92 Room Air 10/30/16 19:31 36.7 66 18 138/86 (103) 96 Room Air 10/30/16 16:20 147/82 (103) 10/30/16 16:20 Room Air 10/30/16 15:07 36.6 72 18 176/89 (118) 94 Room Air 10/30/16 13:06 36.8 72 16 110/74 (86) 94 Room Air 10/30/16 08:03 92 Room Air 10/30/16 07:50 Room Air 10/30/16 07:46 36.8 84 16 120/70 (87) 92 Room Air Assessment & Plan Assessment: POD 2 s/p I&D LLE Open Tibia Fx wound with splinting. Plan: Plan for dc today Pt to follow up with her Orthopedist in [place] Inhouse Planning Pain Management: Morphine, PO Tylenol, Oxy IR DVT Prophylaxis: SCDs, ASA Discharge Planning Discharge Planning: home Pain Management: PO Tylenol, Oxy IR DVT Prophylaxis: ASA
[2016-10-31 08:08] VITALS: BP 136/86; PULSE 64; TEMP 36.5; O2SAT 95
[2016-10-31 08:54] VITALS: O2SAT 95
[2016-10-31] MEDS: ASPIRIN 81 MG ECTAB PO SCH (09:59)
[2016-10-31] MEDS: VENLAFAXINE HCL XR 75 MG CAPXR PO SCH (10:00)
[2016-10-31] MEDS: PANTOprazole SOD 40 MG TAB PO SCH (10:00)
[2016-10-31] MEDS: CHOLECALCIFEROL 1000 INTER.UNIT TAB PO SCH (10:01)
[2016-10-31] MEDS: OXCARBAZEPINE 150 MG TAB PO SCH (10:01)
[2016-10-31 10:16] VITALS: BP 136/86; PULSE 64; TEMP 36.5; O2SAT 95
[2016-10-31] MEDS: OXYCODONE HCL IR 5 MG TAB (IMMEDIATE RELEASE) PO PRN (11:45)
--- NOTE | 2016-11-07 00:27 | DISCHARGE SUMMARY ---
DISCHARGE DIAGNOSIS: Left open grade 1 tibia fracture. SECONDARY DIAGNOSES: Hypothyroidism, pneumonia in the past, questionable history of asthma, hypercholesterolemia, seizure disorder. CONSULTS: Cheryl Blank PA-C. COMPLICATIONS: None. PROCEDURES: Left irrigation and debridement open midshaft tibia fracture with closed treatment of the tibia fracture with splinting by Dr. Castañeda on 10/29/2016. BRIEF HISTORY: As dictated in history and physical. HOSPITAL SUMMARY: The patient was admitted on the above-noted date with the above-noted injury. She was then taken to the operating room and the above-noted surgery was performed which she tolerated well. On her first postoperative day, she had no complaints. She was sleeping upon my arrival in the room but was easily awoken. She was feeling tired from the day with PT, etc., and had multiple questions about going home, etc. Calves were soft and nontender. Neurovascularly, she was intact. Splint was intact, toes were mobile and vital signs were stable. She was continued on her physical therapy protocol and plans were for discharge the following morning. By 10/31/2016, she continued to feel well. She had no complaints other than some mild nausea the previous night which seemed to be resolving. Calves were soft and nontender, neurovascularly intact. Splint was intact. Toes were mobile. Vital signs were stable. The patient was progressing with her physical therapy and it was felt that she could be discharged to home. DISCHARGE INSTRUCTIONS: The patient was discharged actually back to [facility] which [facility] which she had come to visit. Plans were for her to stay there for the weekend and then return home to [place]. She was discharged on 10/31/2016 and was nonweightbearing left lower extremity. The patient to follow instructions as noted and to follow up at Dr. Castañeda's office that Friday for dressing change and wound check. The patient then would need a plan to follow up with an orthopedist as soon as possible once she arrived at home at [place]. Follow up with her primary care physician for blood pressure check in 1 week. DISCHARGE MEDICATIONS: Acetaminophen 1000 mg p.o. q. 8 hours, aspirin 81 mg 1 tab p.o. b.i.d. for 14 days, Zofran 8 mg p.o. q. 8 hours p.r.n. nausea, oxycodone 5-10 mg p.o. q. 4 hours p.r.n., resume home meds as listed.
== END 2016-10-31 11:45 | disposition home or self-care (01) | DRG 982 ==
LOC: EDBD 12:55 → C.EDD 12:58 → C.3E 16:21 → UNDOADMIN 16:21 → ENRESERV 19:29
PROVIDERS: ADMIT Orthopaedic Surgery; ATTEND Orthopaedic Surgery
PROC: 0QBH0ZZ Excision of Left Tibia, Open Approach (ICD-10-PCS; principal; 2016-10-29 10:30)
DX: S81.812A Laceration without foreign body, left lower leg, initial encounter (principal); S82.235A Nondisplaced oblique fracture of shaft of left tibia, initial encounter for closed fracture; E03.9 Hypothyroidism, unspecified; J45.909 Unspecified asthma, uncomplicated; G40.909 Epilepsy, unspecified, not intractable, without status epilepticus; Z79.899 Other long term (current) drug therapy; Z23 Encounter for immunization; W20.8XXA Other cause of strike by thrown, projected or falling object, initial encounter; Y93.89 Activity, other specified; Y92.89 Other specified places as the place of occurrence of the external cause